=== PATIENT | male | born 1980 | race Caucasian/White ===

== ENCOUNTER 2021-03-13 01:10 | Inpatient (IN) ==
[2021-03-13] MEDS: Lactated Ringers 1000 ml BAG 1,000 ML IV SCH ×2 (01:27→01:52)
[2021-03-13] MEDS ORDERED: Ondansetron 4 mg VIAL 2 MG/ML 2 ml VIAL IV ONE (01:32)
[2021-03-13] MEDS ORDERED: HYDROmorphone 0.5 MG/0.5 ML SYRINGE IV ONE (01:32)
[2021-03-13] MEDS ORDERED: Piperacillin/Tazobac ADVAN 3.375 GM in NS 0.9% 100 ml BAG 100 ML IVPB ONE (01:32)
[2021-03-13 01:37] LABS: ABS Lymphocytes 0.6 10^3/ul (1.0-4.8); ABS Monocytes 0.4 10^3/ul (0-0.8); ABS Neutrophils 7.5 10^3/ul (1.5-7.7); Hematocrit 41 % (42-52); Hemoglobin 14.2 g/dL (14.0-18.0); Lymphocyte % 7.5 %; Mean Corpuscular HGB Conc 35 g/dL (31-36); Mean Corpuscular Hemoglobin 31 pg (27-31); Mean Corpuscular Volume 89 fL (80-94); Mean Platelet Volume 7.4 fL (7.4-10.4); Platelet Count 263 10^3/uL (150-450); Red Cell Distribution Width 13 % (10-15); White Blood Count 8.6 10^3/uL (3.5-10.8)
[2021-03-13 01:55] LABS: Albumin 3.9 g/dL (3.2-5.2); Albumin/Globulin Ratio 1.1 (1-3); C Reactive Protein 156.25 mg/L (<8.01); Calcium 9.1 mg/dL (8.6-10.3); EGFR African American 132.1 (>60); EGFR Non-African American 109.2 (>60); Globulin 3.4 g/dL (2-4); Potassium 3.9 mmol/L (3.5-5.0); Total Bilirubin 2.3 mg/dL (0.2-1.0); Total Protein 7.3 g/dL (6.4-8.9)
[2021-03-13] MEDS ORDERED: Iohexol 300 (CONTRAST) 10 ML SDV IV ONE (02:27)
[2021-03-13 03:08] LABS: Activated Partial Thrombo Time 28.6 seconds (26.0-38.0); INR 1.42 (0.86-1.15)
[2021-03-13] MEDS ORDERED: HYDROmorphone 1 MG/1 ML SYRINGE IV SLOW PU PRN (03:40)
[2021-03-13] MEDS ORDERED: Ondansetron 4 mg VIAL 2 MG/ML 2 ml VIAL IV PRN ×2 (03:40→13:24)
[2021-03-13] MEDS ORDERED: Piperacillin/Tazobactam VIAL 3.375 GM in NS 0.9% 100 ml BAG 100 ML IVPB SCH (04:00)
[2021-03-13] MEDS ORDERED: Lactated Ringers 1000 ml BAG 1,000 ML IV SCH (04:00)
[2021-03-13 04:31] LABS: Rapid COVID-19 Molecular Undetected (Undetected)
[2021-03-13] MEDS ORDERED: Zosyn per Pharmacy NOTE FOLLOW UP PRN (05:09)
[2021-03-13] MEDS: ZOSYN 3.375 GM Q8H per EXTENDED INFUSION IV SCH ×2 (06:32→22:31)
[2021-03-13] MEDS ORDERED: Bupivacaine 0.5% SDV PF 30ML VIAL ONE (10:48)
[2021-03-13] MEDS ORDERED: Lidocaine 1% w EPI 1:200,000 SDV 30 ML VIAL ONE (10:48)
[2021-03-13] MEDS ORDERED: Midazolam 2 mg/2 ml VIAL 1 mg/ml 2 ml VIAL (2 mg) ONE (11:09)
[2021-03-13] MEDS ORDERED: Lidocaine 2% PF 5 ML VIAL ONE (11:10)
[2021-03-13] MEDS ORDERED: Ketamine HCL 50 mg/ml 10 ml VIAL (500 MG) ONE (11:10)
[2021-03-13] MEDS ORDERED: fentaNYL 100 mcg/2 ml 50 MCG/ML VIAL ONE ×2 (11:10→12:37)
[2021-03-13] MEDS ORDERED: Rocuronium 50 mg VIAL 10 mg/ml 5 ml VIAL (50 mg) ONE ×3 (11:10→13:42)
[2021-03-13] MEDS ORDERED: Propofol 10 MG/ML 20 ML BTL ONE (11:10)
[2021-03-13] MEDS ORDERED: Acetaminophen IV 1 GM/100ML 100 ML IV ONE (13:22)
[2021-03-13] MEDS ORDERED: HYDROmorphone 1 MG/1 ML SYRINGE IV PRN (13:24)
[2021-03-13] MEDS ORDERED: Naloxone 0.4 mg VIAL 0.4 mg/ml 1 ml VIAL IV PRN (13:24)
[2021-03-13] MEDS ORDERED: Naloxone 0.4 mg VIAL 0.4 mg/ml 1 ml VIAL IV PUSH PRN (14:09)
[2021-03-13] MEDS ORDERED: HYDROmorphone PCA 20 MG/20 ML PCA.SYRING PCA SCH (15:00)
[2021-03-13 15:08] LABS: ABS Lymphocytes 0.4 10^3/ul (1.0-4.8); ABS Monocytes 0.3 10^3/ul (0-0.8); ABS Neutrophils 10.9 10^3/ul (1.5-7.7); Hematocrit 40 % (42-52); Hemoglobin 13.7 g/dL (14.0-18.0); Lymphocyte % 3.7 %; Mean Corpuscular HGB Conc 35 g/dL (31-36); Mean Corpuscular Hemoglobin 31 pg (27-31); Mean Corpuscular Volume 89 fL (80-94); Mean Platelet Volume 7.1 fL (7.4-10.4); Platelet Count 233 10^3/uL (150-450); Red Blood Count 4.46 10^6 /uL (4.18-5.48); Red Cell Distribution Width 13 % (10-15); White Blood Count 11.6 10^3/uL (3.5-10.8)
[2021-03-13 15:38] LABS: Calcium 7.3 mg/dL (8.6-10.3); EGFR African American 157.4 (>60); EGFR Non-African American 130.1 (>60); Potassium 4.6 mmol/L (3.5-5.0)
[2021-03-13] MEDS ORDERED: ZOSYN 3.375 GM x ONE DOSE over 30 miuntes IV (18:30)
[2021-03-14] MEDS: NS 0.9% 1000 ml BAG 1,000 ML IV SCH ×3 (00:48→19:29)
[2021-03-14] MEDS: ZOSYN 3.375 GM Q8H per EXTENDED INFUSION IV SCH ×4 (02:06→21:48)
[2021-03-14 05:02] LABS: ABS Lymphocytes 0.4 10^3/ul (1.0-4.8); ABS Monocytes 0.4 10^3/ul (0-0.8); ABS Neutrophils 10.4 10^3/ul (1.5-7.7); Hematocrit 38 % (42-52); Hemoglobin 12.8 g/dL (14.0-18.0); Lymphocyte % 3.2 %; Mean Corpuscular HGB Conc 34 g/dL (31-36); Mean Corpuscular Hemoglobin 30 pg (27-31); Mean Corpuscular Volume 89 fL (80-94); Mean Platelet Volume 7.3 fL (7.4-10.4); Platelet Count 227 10^3/uL (150-450); Red Blood Count 4.23 10^6 /uL (4.18-5.48); Red Cell Distribution Width 13 % (10-15); White Blood Count 11.2 10^3/uL (3.5-10.8)
[2021-03-14 05:21] LABS: Calcium 7.8 mg/dL (8.6-10.3); EGFR African American 138.2 (>60); EGFR Non-African American 114.2 (>60)
[2021-03-14] MEDS ORDERED: HYDROmorphone 0.5 MG/0.5 ML SYRINGE IV SLOW PU PRN (09:38)
[2021-03-14] MEDS: HYDROcodone/ACETAMIN 5/325 mg TAB PO PRN (11:48)
[2021-03-14] MEDS: Heparin 5000 UNITS/ML 1 mL VIAL SUBCUT SCH ×2 (14:50→21:48)
[2021-03-15] MEDS: HYDROcodone/ACETAMIN 5/325 mg TAB PO PRN ×2 (00:03→19:27)
[2021-03-15] MEDS: NS 0.9% 1000 ml BAG 1,000 ML IV SCH ×2 (05:57→21:02)
[2021-03-15] MEDS: ZOSYN 3.375 GM Q8H per EXTENDED INFUSION IV SCH ×2 (06:29→18:21)
[2021-03-15] MEDS: Heparin 5000 UNITS/ML 1 mL VIAL SUBCUT SCH ×3 (06:30→21:49)
[2021-03-16] MEDS: ZOSYN 3.375 GM Q8H per EXTENDED INFUSION IV SCH ×3 (02:27→19:26)
[2021-03-16] MEDS: NS 0.9% 1000 ml BAG 1,000 ML IV SCH (05:04)
[2021-03-16] MEDS: HYDROcodone/ACETAMIN 5/325 mg TAB PO PRN ×3 (05:36→21:57)
[2021-03-16] MEDS: Heparin 5000 UNITS/ML 1 mL VIAL SUBCUT SCH ×3 (05:37→22:00)
[2021-03-16 05:48] LABS: ABS Lymphocytes 0.5 10^3/ul (1.0-4.8); ABS Monocytes 0.4 10^3/ul (0-0.8); ABS Neutrophils 5.8 10^3/ul (1.5-7.7); Eosinophil % 0.3 %; Hematocrit 32 % (42-52); Lymphocyte % 8.1 %; Mean Corpuscular HGB Conc 35 g/dL (31-36); Mean Corpuscular Hemoglobin 31 pg (27-31); Mean Corpuscular Volume 90 fL (80-94); Platelet Count 263 10^3/uL (150-450); Red Blood Count 3.52 10^6 /uL (4.18-5.48); Red Cell Distribution Width 13 % (10-15); White Blood Count 6.7 10^3/uL (3.5-10.8)
[2021-03-16 06:04] LABS: Calcium 7.8 mg/dL (8.6-10.3); EGFR African American 149.6 (>60); EGFR Non-African American 123.7 (>60); Potassium 3.7 mmol/L (3.5-5.0)
[2021-03-17] MEDS: ZOSYN 3.375 GM Q8H per EXTENDED INFUSION IV SCH ×2 (02:48→10:08)
[2021-03-17 04:48] LABS: ABS Eosinophils 0.1 10^3/ul (0-0.6); ABS Lymphocytes 0.8 10^3/ul (1.0-4.8); ABS Monocytes 0.4 10^3/ul (0-0.8); ABS Neutrophils 3.8 10^3/ul (1.5-7.7); Eosinophil % 1.4 %; Hematocrit 32 % (42-52); Hemoglobin 10.8 g/dL (14.0-18.0); Lymphocyte % 15.9 %; Mean Corpuscular HGB Conc 34 g/dL (31-36); Mean Corpuscular Hemoglobin 31 pg (27-31); Mean Corpuscular Volume 90 fL (80-94); Mean Platelet Volume 6.6 fL (7.4-10.4); Platelet Count 295 10^3/uL (150-450); Red Blood Count 3.51 10^6 /uL (4.18-5.48); Red Cell Distribution Width 13 % (10-15); White Blood Count 5.1 10^3/uL (3.5-10.8)
[2021-03-17] MEDS: HYDROcodone/ACETAMIN 5/325 mg TAB PO PRN ×2 (05:42→10:07)
[2021-03-17] MEDS: Heparin 5000 UNITS/ML 1 mL VIAL SUBCUT SCH (05:43)
[2021-03-17 11:13] VITALS: BP 134/77
== END 2021-03-17 14:40 | disposition home or self-care (01) | DRG 340 ==
LOC: ED 01:10 → EDHOLD 03:40 → AA 08:26 → SSU 17:26
PROVIDERS: ADMIT Surgery; ATTEND Surgery